=== PATIENT | female | born 1985 | race Caucasian/White ===

== ENCOUNTER 2021-10-09 11:17 | Emergency (ER) | payer BC, OTHER ==
[~2021-10-09] VITALS: Ht 160 cm; Wt 118.2 kg
[2021-10-09 14:06] LABS: BASO % 0.3 % (0.0-1.0); EOS % 0.1 % (0.0-3.0); HEMATOCRIT 43.5 % (36.0-47.0); HEMOGLOBIN 14.2 g/dl (12.0-15.5); LYMPH # 1.2 10^3/uL (1.5-5.0); LYMPH % 7.8 % (24.0-44.0); MEAN CORPUSCULAR HEMOGLOBIN 28.9 pg (27.0-33.0); MEAN CORPUSCULAR HGB CONC 32.6 g/dl (32.0-36.5); MEAN CORPUSCULAR VOLUME 88.4 fl (80.0-96.0); MONO # 0.6 10^3/uL (0.0-0.8); MONO % 3.7 % (2.0-8.0); NEUTROPHILS % 87.6 % (36.0-66.0); PLATELET COUNT, AUTOMATED 204 10^3/uL (150-450); RED BLOOD COUNT 4.92 10^6/uL (4.00-5.40); WHITE BLOOD COUNT 14.9 10^3/uL (4.0-10.0)
[2021-10-09 14:37] LABS: ALBUMIN 3.6 GM/DL (3.2-5.2); BILIRUBIN,DIRECT 0.2 MG/DL (0.0-0.2); BILIRUBIN,TOTAL 0.9 MG/DL (0.2-1.0); CREATININE FOR GFR 1.11 MG/DL (0.55-1.30); GLOMERULAR FILTRATION RATE 58.9 (>60); POTASSIUM SERUM 3.2 MEQ/L (3.5-5.1); TOTAL PROTEIN 7.2 GM/DL (6.4-8.2)
[2021-10-09] MEDS ORDERED: ONDANSETRON 4MG/2ML VIAL IV ONE ×2 (16:05→19:15)
[2021-10-09] MEDS ORDERED: MORPHINE 4 MG/ML 1ML VIAL/SYRINGE (J2270) IV ONE (16:05)
[2021-10-09] MEDS ORDERED: NS 1,000 ML IV ONE (16:05)
[2021-10-09] MEDS ORDERED: ISOVUE-370 76% 100ML VIAL As Ordered ONE (16:11)
[2021-10-09 17:31] VITALS: BP 147/67
[2021-10-09] MEDS ORDERED: cefTRIAXone SOD 1 GM in D5W MINI-BAG PLUS 50 ML IV ONE (18:15)
--- NOTE | 2021-10-09 19:24 | REPVR ---
PROCEDURE INFORMATION: Exam: CT Abdomen And Pelvis With Contrast Exam date and time: 10/09/2021 4:05 PM Age: 36 years old Clinical indication: Abdominal pain; Flank; Right; Additional info: Rlq, R flank pain, elev wbc TECHNIQUE: Imaging protocol: Computed tomography of the abdomen and pelvis with contrast. Axial, coronal and sagittal reformatted images were created and reviewed. Radiation optimization: All CT scans at this facility use at least one of these dose optimization techniques: automated exposure control; mA and/or kV adjustment per patient size (includes targeted exams where dose is matched to clinical indication); or iterative reconstruction. Contrast material: ISOVUE 370; Contrast volume: 100 ml; Contrast route: INTRAVENOUS (IV); COMPARISON: No relevant prior studies available. FINDINGS: Diaphragm: Small hiatal hernia. Liver: Scattered subcentimeter low-density hepatic lesions, measuring up to 9 mm in the right hepatic lobe, too small to characterize. Gallbladder and bile ducts: No radiodense gallstones. No biliary ductal dilatation. Pancreas: Unremarkable. Spleen: Unremarkable. Adrenal glands: Normal. No mass. Kidneys and ureters: Mild right-sided hydroureteronephrosis and perinephric/periureteral stranding, secondary to a 4 mm distal right ureteral calculus (axial image 116 and coronal image 70). Stomach and bowel: Scattered colonic diverticula without evidence of diverticulitis. No obstruction. No bowel wall thickening. No pneumatosis. Appendix: Normal. Intraperitoneal space: No free fluid. No organized fluid collection. No free air. Vasculature: Unremarkable. No aneurysm. Lymph nodes: No pathologically enlarged lymph nodes. Urinary bladder: Unremarkable as visualized. Reproductive: Unremarkable. Bones/joints: No acute osseous abnormality. Mild degenerative changes. Soft tissues: Unremarkable. IMPRESSION: 1. Mild right-sided hydroureteronephrosis and perinephric/periureteral stranding, secondary to a 4 mm distal right ureteral calculus. 2. Additional findings, as above. Electronically signed by: Matthew Vogt On 10/09/2021 19:24:22 PM
[2021-10-09] MEDS ORDERED: KETOROLAC 30 MG/ML 1ML VIAL IV ONE (19:30)
[2021-10-09] MEDS ORDERED: TAMSULOSIN 0.4 MG CAP PO ONE (19:45)
[2021-10-09] MEDS ORDERED: HYDR-3713 PO (19:46)
[2021-10-09] MEDS ORDERED: FLOM0.4C39 PO (19:46)
[2021-10-09] MEDS ORDERED: ONDA4TAB6 PO (19:46)
[2021-10-09] MEDS ORDERED: CIPR-249 PO (19:46)
[2021-10-09] MEDS ORDERED: NORCO 5/325MG TABLET (BULK FOR ED) PO ONE (19:55)
== END 2021-10-09 20:14 | disposition home or self-care (01) ==
LOC: M ED 11:17
DX: N13.2 Hydronephrosis with renal and ureteral calculous obstruction (principal); N10 Acute pyelonephritis; K76.89 Other specified diseases of liver; Z88.1 Allergy status to other antibiotic agents
CPT/HCPCS: 74177; 80048; 80076; 81001; 83690; 85025; 87086; 96361; 96365; 96375; 96376; 99284; J0696; J1885; J2270; J2405; Q9967

== ENCOUNTER 2023-07-15 15:37 | Emergency (ER) | payer BC ==
[~2023-07-15] VITALS: Ht 160 cm; Wt 122.8 kg
[~2023-07-15 15:37] MED LIST: CIPR-249 PO; FLOM0.4C39 PO; HYDR-3713 PO; ONDA4TAB6 PO
[2023-07-15 16:15] VITALS: BP 162/85; TEMP 97.5; O2SAT 99
== END 2023-07-15 18:52 | disposition left against medical advice (07) ==
LOC: M ED 15:37
DX: Z53.21 Procedure and treatment not carried out due to patient leaving prior to being seen by health care provider (principal)

== ENCOUNTER → 2023-10-16 | Outpatient (REF) | payer BC ==
[2023-10-16 15:22] LABS: BASO % 0.6 % (0.0-1.0); EOS # 0.3 10^3/uL (0.0-0.5); EOS % 4.8 % (0.0-3.0); HEMATOCRIT 42.5 % (36.0-47.0); HEMOGLOBIN 13.5 g/dl (12.0-15.5); LYMPH # 1.1 10^3/uL (1.5-5.0); LYMPH % 20.4 % (24.0-44.0); MEAN CORPUSCULAR HEMOGLOBIN 29.7 pg (27.0-33.0); MEAN CORPUSCULAR HGB CONC 31.8 g/dl (32.0-36.5); MEAN CORPUSCULAR VOLUME 93.4 fl (80.0-96.0); MONO # 0.6 10^3/uL (0.0-0.8); NEUTROPHILS # 3.4 10^3/uL (1.5-8.5); NEUTROPHILS % 62.5 % (36.0-66.0); PLATELET COUNT, AUTOMATED 169 10^3/uL (150-450); RED BLOOD COUNT 4.55 10^6/uL (4.00-5.40); WHITE BLOOD COUNT 5.4 10^3/uL (4.0-10.0)
[2023-10-16 15:45] LABS: ALBUMIN 3.3 G/DL (3.2-5.2); ALKALINE PHOSPHATASE 75 U/L (46-116); ALT/SGPT 19 U/L (7.0-40); AST/SGOT 15 U/L (<34); BILIRUBIN,TOTAL 0.6 MG/DL (0.3-1.2); BLOOD UREA NITROGEN 10 MG/DL (9-23); CALCIUM LEVEL 8.6 MG/DL (8.5-10.1); CARBON DIOXIDE LEVEL 24 MMOL/L (20-31); CHLORIDE LEVEL 107 MMOL/L (98-107); CHOLESTEROL LEVEL 123 MG/DL (<200); CHOLESTEROL RISK RATIO 2.88 (<5); CREATININE FOR GFR 0.81 MG/DL (0.55-1.30); GLOMERULAR FILTRATION RATE > 60.0 (>60); GLUCOSE, FASTING 85 MG/DL (60-100); HDL CHOLESTEROL 42.6 MG/DL (>40); LDL CHOLESTEROL 62.4 MG/DL (<100); NON-HDL-C 80.4 MG/DL; POTASSIUM SERUM 3.9 MMOL/L (3.5-5.1); SODIUM LEVEL 139 MMOL/L (136-145); THYROID STIMULATING HORMONE 1.524 uIU/ML (0.55-4.78); TOTAL PROTEIN 6.6 G/DL (5.7-8.2); TRIGLYCERIDES LEVEL 90 MG/DL (<150)
== END ==
LOC: M SFHCADAM 08:43
PROVIDERS: ATTEND Physician Assistant Medical
DX: R93.2 Abnormal findings on diagnostic imaging of liver and biliary tract (principal); E66.01 Morbid (severe) obesity due to excess calories

== ENCOUNTER → 2023-10-21 | Outpatient (CLI) | payer BC | LOC: M RAD 09:16 | PROVIDERS: ATTEND Physician Assistant Medical | DX: R93.2 Abnormal findings on diagnostic imaging of liver and biliary tract (principal) ==

== ENCOUNTER → 2024-12-04 | Outpatient (CLI) | payer BC ==
[~2024-12-04] MED LIST changes: +ONDA-282 PO; -ONDA4TAB6 PO
== END ==
LOC: M WHC 07:38
PROVIDERS: ATTEND Physician Assistant Medical
DX: Z12.31 Encounter for screening mammogram for malignant neoplasm of breast (principal); N63.10 Unspecified lump in the right breast, unspecified quadrant; N63.20 Unspecified lump in the left breast, unspecified quadrant

== ENCOUNTER → 2025-01-13 | Outpatient (CLI) | payer BC | LOC: M WHC 12:26 | PROVIDERS: ATTEND Physician Assistant Medical | DX: Z12.31 Encounter for screening mammogram for malignant neoplasm of breast (principal); N63.10 Unspecified lump in the right breast, unspecified quadrant; N60.02 Solitary cyst of left breast ==

== ENCOUNTER → 2025-07-27 | Outpatient (CLI) | payer BC ==
[~2025-07-27] MED LIST changes: -FLOM0.4C39 PO; +TAMS-18 PO
== END ==
LOC: M WHC 07:57
PROVIDERS: ATTEND Physician Assistant Medical
DX: R92.8 Other abnormal and inconclusive findings on diagnostic imaging of breast (principal)
CPT/HCPCS: 76642; 77065; G0279